=== PATIENT | male | born 1965 | race Caucasian/White ===

== ENCOUNTER 2016-06-29 19:14 | Inpatient (IN) | payer OTHER ==
[~2016-06-29] VITALS: Ht 177.8 cm; Wt 97.1 kg
[~2016-06-29 19:14] MED LIST: ASPIRIN81 M4 PO; LOSARTAN-HCTZ1 EACH PO
--- NOTE | 2016-06-29 19:32 | NUR ---
TRIAGE: PT BROUGHT INTO TRIAGE IN W/C C/C NEAR SYNCOPAL EPISODE. PT HAD COME HOME FROM [employer]ALL [employer]AME WHEN SYMPTOMS CAME ON, SUDDEN IN ONSET. REPORTS ALSO NUMBING AND THROBBING PAIN TO ARMS AND LEGS, FEELING DIZZY AND SWEATY. PT NOTED TO BE PALE AND DIAPHORETIC AT TRIAGE, HR 120'S. DENIES ANY CHEST PAIN. REPORTS HX OF EPISODE OF RAPID AFIB IN MARCH, STATES HE WENT IN AND OUT OF IT AND DOES NOT REQUIRE ANY MEDICATION FOR IT AT THIS TIME. SENT TO [facility] FOR EKG AND BLOOD WORK.
--- NOTE | 2016-06-29 19:33 | NUR ---
Informed waiting has been performed.
--- NOTE | 2016-06-29 19:36 | NUR ---
IV ESTABLISHED IN [facility]. BLOOD SAMPLES DRAWN
--- NOTE | 2016-06-29 19:41 | ED CARDIAC/CP/PALPITATIONS ---
History of Present Illness General Chief Complaint: Syncope and Near-Syncope Stated Complaint: NEAR SYNCOPAL EPISODES TODAY Source: patient Exam Limitations: no limitations Vital Signs & Intake/Output Vital Signs & Intake/Output Vital Signs Date Time Temp Pulse Resp B/P Pulse O2 O2 Flow FiO2 Ox Delivery Rate 06/29 2199 100 Nasal 2.0L Cannula 06/29 2157 62 12 119/77 99 Nasal 2.0L Cannula 06/29 2126 96.3 86 16 120/73 100 Nasal 2.0L Cannula 06/29 2099 98/60 06/29 2052 73 12 98/60 100 Nasal 2.0L Cannula 06/298 90 100/60 06/29 2013 96.0 127 24 131/68 06/29 2000 86/60 06/29 1950 Room Air 06/29 1920 96.0 127 24 131/68 98 Room Air Allergies Coded Allergies: No Known Allergies (06/29/16) Triage Note: TRIAGE: PT BROUGHT INTO TRIAGE IN W/C C/C NEAR SYNCOPAL EPISODE. PT HAD COME HOME FROM [employer] WHEN SYMPTOMS CAME ON, SUDDEN IN ONSET. REPORTS ALSO NUMBING AND THROBBING PAIN TO ARMS AND LEGS, FEELING DIZZY AND SWEATY. PT NOTED TO BE PALE AND DIAPHORETIC AT TRIAGE, HR 120'S. DENIES ANY CHEST PAIN. REPORTS HX OF EPISODE OF RAPID AFIB IN MARCH, STATES HE WENT IN AND OUT OF IT AND DOES NOT REQUIRE ANY MEDICATION FOR IT AT THIS TIME. SENT TO [facility] FOR EKG AND BLOOD WORK. Triage Nurses Notes Reviewed? yes Onset: Abrupt Duration: constant Timing: single episode today Quality/Severity: severe, pressure Location: substernal Radiation: neck, shoulders Activities at Onset: activity Aspirin Today: 81 mg x 1 HPI: Patient is a 50-year-old male with a past medical history of hypertension and concerns of new onset of atrial fibrillation with rapid ventricular rate noted after patient was admitted in March 2016 to [facility]. Patient initially received aspirin due to low chads score and was admitted to Dr. Webber's service. Patient received at the time of admission echocardiogram showing ejection fraction of 55% and patient was safely discharged any followed up with front desk receptionist Dr. Warner in [place]. Patient and state that since discharge they followed up and received unremarkable stress test, echocardiogram and Holter monitoring. Patient states that approximately 3 weeks ago while playing basketball he had acute onset of dizziness presyncope chest pressure and body paresthesia which resolved and patient did not seek medical attention at that time. Patient states that today while playing basketball about approximate 40 minutes into playing he had acute onset of chest pressure dizziness SHORTNESS OF BREATH sensation diaphoresis and body paresthesia. Symptoms still persisted and were worse due to the severity and the duration of his symptoms he presented to the emergency room. Patient is compliant with his losartan and 81 mg of aspirin. No other medications were given prior to arrival. Patient does state that he does drink alcohol on occasion and has cut back due to his last admission. Denies any illicit drug use denies any smoking use. (TERRENCE FUENTES) Reconcile Medications Aspirin (Ecotrin*) 81 MG TABLET.DR 1 TAB PO DAILY HEART/BLOOD (Reported) Losartan/Hydrochlorothiazide (Losartan-Hctz 100-12.5 MG Tab) 1 EACH TABLET 1 TAB PO DAILY HTN (Reported) (JANELLE HUERTAS DO) Past History Travel History Traveled to [place] past 21 day No Medical History Any Pertinent Medical History? see below for history Neurological: NONE EENT: NONE Cardiovascular: AFIB, hypertension Respiratory: asthma Gastrointestinal: NONE Hepatic: NONE Renal: NONE Musculoskeletal: NONE Psychiatric: NONE Endocrine: NONE Blood Disorders: NONE Cancer(s): NONE GUEST LAUNDRY ATTENDANT/Reproductive: NONE Other Medical Hx: hemorrhoidal banding History of MRSA: No History of VRE: No History of CDIFF: No Surgical History Surgical History: hernia repair-inguinal (left), N (left rotator cuff repair) Psychosocial History Who do you live with Spouse Services at Home None What is your primary language Arabic Tobacco Use: Never used ETOH Use: occasional use Illicit Drug Use: denies illicit drug use Family History Hx Contributory? No (TERRENCE FUENTES) Review of Systems Review of Systems Constitutional: Reports: see HPI, malaise, weakness. EENTM: Reports: no symptoms. Respiratory: Reports: see HPI, short of breath. Cardiovascular: Reports: see HPI. GI: Reports: see HPI, nausea. Genitourinary: Reports: no symptoms. Musculoskeletal: Reports: no symptoms. Skin: Reports: no symptoms. Neurological/Psychological: Reports: see HPI, paresthesia. Hematologic/Endocrine: Reports: no symptoms. Immunologic/Allergic: Reports: no symptoms. All Other Systems: Reviewed and Negative (TERRENCE FUENTES) Physical Exam Physical Exam General Appearance: mild distress, PALE COMPLEXION Cardiovascular: tachycardia Comments: HEENT: Normal EENT exam, extraocular motion intact, no nystagmus. Pupils equally round and reactive to light and accommodation. Nose is atraumatic. External auditory canal and Tympanic membranes clear. Pharynx normal. No swelling or edema. Neck: Supple, no lymphadenopathy, normal range of motion without pain or tenderness Back: Nontender, no CVA tenderness. Respiratory: Chest nontender. No respiratory distress.breath sounds clear to auscultation bilaterally Abdomen: Soft, nontender nondistended, no appreciable organomegaly. Normal bowel sounds. No ascites Extremity: No edema, no calf tenderness to palpation, normal and equal pulses. Neuro: Alert oriented Skin: No appreciable rash on exposed skin, skin is warm and dry. Psych: Mood and affect is normal, memory and judgment is normal. Core Measures ACS in differential dx? Yes ASA ordered for poss ACS? Yes-ordered Severe Sepsis Present: No Septic Shock Present: No (FAVIAN OWEN,TERRENCE) Physical Exam Rectal: heme negative stool (JANELEL HUERTAS DO) Progress Differential Diagnosis: AMI, aortic dissection, atrial fibrillation, cholecystitis, CHF/pulm edema, costochondritis, hyperkalemia, hypovolemia, hyperthyroid, hyperventilation, intracranial hemorrhage, musculoskeletal pain, myocarditis, pancreatitis, pericarditis, pneumonia, pneumothorax, PSVT, pulmonary embolism, PUD/GERD, PVCs/PACs, respiratory failure, rib fracture, sepsis, unstable angina, V-fib/V-Tach, WPW syndrome Plan of Care: Orders Procedure Date/time Status Admit to inpatient 06/29 2207 Active URINE DRUGS OF ABUSE 06/29 2156 Active Patient Data 06/29 215 Active EKG 06/29 2131 Active Add-on Test (ER Only) 06/29 2000 Active PARTIAL THROMBOPLASTIN TIME 06/29 1955 Complete PROTHROMBIN TIME 06/29 1955 Complete Telemetry/Res Habilitation Assistant 06/29 1954 Active THYROID STIMULATING HORMONE 06/29 1954 Complete TROPONIN LEVEL 06/29 1954 Complete MAGNESIUM 06/29 1954 Complete FREE T4 06/29 1954 Complete COMPREHENSIVE METABOLIC PANEL 06/29 1954 Complete CBC WITHOUT DIFFERENTIAL 06/29 1954 Complete EKG 06/29 1950 Active D-DIMER 06/29 1936 Complete EKG 06/29 1924 Active Current Medications Sig/Jeffry Start time Last Medication Dose Stop Time Status Admin Heparin Sodium 25,000 UNIT Q24H 06/29 2199 UNVr (Porcine) (Heparin) Sodium Chloride 500 ML Adenosine 0 .STK-MED ONE 06/29 1955 CAN (Adenocard) Laboratory Tests 06/29/162157: Urine Opiates Screen Pending, Methadone Screen Pending, Barbiturate Screen Pending, Ur Phencyclidine Scrn Pending, Amphetamines Screen Pending, U Benzodiazepines Scrn Pending, Urine Cocaine Screen Pending, Urine Cannabis Screen Pending 06/29/161999: D-Dimer Cancelled 06/29/161936: Anion Gap 20 H, Estimated GFR 59 L, BUN/Creatinine Ratio 14.6, Glucose 164 H, Calcium 9.3, Magnesium 2.0, Total Bilirubin 1.1, AST 33, ALT 35, Alkaline Phosphatase 87, Troponin I < 0.01, Total Protein 8.0, Albumin 4.7, Globulin 3.3, Albumin/Globulin Ratio 1.4, TSH 2.900, Free T4 1.50, PT 11.1, INR 1.06, APTT 24 L, D-Dimer < 200, CBC w Diff NO MAN DIFF REQ, RBC 5.02, MCV 90.0, MCH 30.8, RDW 12.8, MPV 7.5, Gran % 64.5, Lymphocytes % 22.9, Monocytes % 10.9 H, Eosinophils % 1.1, Basophils % 0.6, Absolute Granulocytes 5.8, Absolute Lymphocytes 2.0, Absolute Monocytes 1.0 H, Absolute Eosinophils 0.1, Absolute Basophils 0.1, PUBS MCHC 34.2 Patient on initial presentation had significant concerns of acute coronary syndrome in which the telemetry monitored noted patient to be in SVT approximately 200 bpm to 180 bpm intermittently which patient then would return to sinus rhythm however there was brief episodes of ventricular tachycardia. Cardiac pads were immediately placed on patient. There is also been intermittent episodes during normal sinus rhythm of PVC. Patient initially was given aspirin regiment and magnesium IV. Dr. HUERTAS also evaluated patient and discussed critical results with Dr. Webber who is aware of admission is coming in to evaluate patient. He also advised patient to be given IV Lopressor which was administered. Patient's initial blood pressure was 130/70 however the blood pressure then became 90/60 which IV fluids were administered bolus. Patient's blood pressure did respond however patient was still in intermittent SVT in which Dr. Webber then advised patient to be given IV amiodarone bolus and IV amiodarone drip which was administered. Patient was accepted under Dr. Webbre service to the ICU. Dr. HUERTAS agrees with disposition plan AND Also evaluated patient. Patient upon admission was stabilized patient was normotensive and Dr. Webber currently is evaluating patient (TERRENCE FUENTES) Diagnostic Imaging: Viewed by Me: Radiology Read. CXR Impression: no acute abnormality, no infiltrates Initial ED EKG: SINUS TACHYCARDIA 104 BPM Repeat EKG: changed (svt 179 BPM) Comments: PATIENT: JUHI CARPIO JR PRESENT AGE: 50 PATIENT ACCOUNT NO: [id number] : 66 LOCATION: [facility] ORDERING PHYSICIAN: TERRENCE OWEN SERVICE DATE: 06/29/16 EXAM TYPE: RAD - XRY-PORTABLE CHEST XRAY EXAMINATION: XR PORTABLE CHEST CLINICAL INFORMATION: SVT COMPARISON: Chest x-ray 03/30/2016 TECHNIQUE: Portable view of the chest was obtained. FINDINGS: No significant abnormality is noted involving the heart, lungs, mediastinum, bony thorax or soft tissues. IMPRESSION: Unremarkable examination. (TERRENCE FUENTES) Departure Departure Disposition: STILL A PATIENT Condition: Critical Clinical Impression Primary Impression: SVT (supraventricular tachycardia) Secondary Impressions: Chest pain Referrals: EMMA DODSON MD (PCP/Family) Departure Forms: Customer Survey General Discharge Information Admission Note Spoke With: JUN TORRES PhD,SHADIA Alex Documentation of Exam: Documentation of any treatments & extenuating circumstances including Concerns Regarding Discharge (functional status, medication knowledge or non-compliance, living conditions, etc.) that warrant an admission rather than observation: [ Patient will be accepted under Dr. Webber's service to the ICU for concerns of recurrent SVT, patient requires cardiology consultation, telemetry monitoring, repeat labs, IV antiarrhythmic-amiodarone, outpatient treatment at this time due to critical status of recurrent SVT and concerns of intermittent V. tach would be medically harmful.] (TERRENCE FUENTES) Admission Note Documentation of Exam: Documentation of any treatments & extenuating circumstances including Concerns Regarding Discharge (functional status, medication knowledge or non-compliance, living conditions, etc.) that warrant an admission rather than observation: 06/29/16 10 pm I have seen and evaluated the patient and assumed care of the patient. He is a 50-year-old man who presents to the emergency department after playing basketball with an episode of chest pressure and intermittent runs of supraventricular tachycardia. He also had ventricular ectopy and short runs of V. tach. The patient was placed on a monitor and oxygen. Labs were sent. Chest x-ray was unchanged. He received IV magnesium, IV Lopressor, and IV amiodarone. Stat cardiology consultation was obtained; the patient is being admitted and has been seen by Dr. Webber in the ED, admission to the intensive care unit. PA/AUTOMOBILE ACCESSORIES SALESPERSON Co-Sign Statement Statement: ED Attending supervision documentation- [X] I saw and evaluated the patient. I have also reviewed all the pertinent lab results and diagnostic results. I agree with the findings and the plan of care as documented in the PA's/AUTOMOBILE ACCESSORIES SALESPERSON's documentation. [] I have reviewed the ED Record and agree with the PA's/AUTOMOBILE ACCESSORIES SALESPERSON's documentation. [] Additions or exceptions (if any) to the PAs/AUTOMOBILE ACCESSORIES SALESPERSON's note and plan are summarized below: [] (ALEKSANDAR HUNTER,JANELLE Lau) Critical Care Note Critical Care Note Critical Care Time: 75-104 min (FAVIAN OWEN,TERRENCE)
--- NOTE | 2016-06-29 19:50 | NUR ---
PT MOVED TO RM 11 VIA STRETCHER. PT LETHARGIC, PALE. PLACED ON STEEL FABRICATOR. PT HAS SINUS BEATS BUT THEN HAS RAPID HR IN 200'S WITH ASSOCIATED DIZZINESS AND PRESYNCOPAL FEELING. PVCS ALSO NOTED. DR. HUERTAS AND LEXIE BALLESTEROS CALLED TO BEDSIDE
--- NOTE | 2016-06-29 20:20 | NUR ---
PT CONTINUING TO HAVE INTERMITTENT BUT FREQUENT RUNS OS ?SVT AND VTACH. PT THEN HAS PAUSES AND RESUMES WITH SINUS BEATS. DR. HUERTAS REMAINS AT BEDSIDE
[2016-06-29 20:29] LABS: ABSOLUTE BASOPHIL COUNT 0.1 /CUMM (0.0-0.2); ABSOLUTE EOSINOPHIL COUNT 0.1 /CUMM (0.0-0.7); ABSOLUTE GRANULOCYTE CT 5.8 /CUMM (1.4-6.5); BASOPHIL % 0.6 % (0.0-2.0); EOSINOPHIL % 1.1 % (0-5); GRANULOCYTE % 64.5 % (42.2-75.2); HEMATOCRIT 45.2 % (42-52); MEAN CORPUSCULAR HGB 30.8 PG (27.0-31.0); MEAN CORPUSCULAR HGB CONC 34.2 G/DL (33.0-37.0); MEAN PLATELET VOLUME 7.5 FL (7.4-10.4); PLATELET COUNT 217 /CUMM (130-400); RBC DISTRIBUTION WIDTH 12.8 % (11.5-14.5); RED BLOOD CELL CT 5.02 /CUMM (4.70-6.10); WHITE BLOOD CELL COUNT 8.9 /CUMM (4.8-10.8)
[2016-06-29 20:44] LABS: PT 11.1 SEC (9.4-12.5); PTT 24 SEC (25-37)
--- NOTE | 2016-06-29 20:54 | NUR ---
PT RESTING COMFORTABLY AT THIS TIME. STATES PAIN AND LIGHTHEADNESS HAS IMPROVED "I CAN ACTUALLY TALK NOW." FAMILY AT BEDSIDE FOR SUPPORT. AMIODARONE BOLUS INFUSING
--- NOTE | 2016-06-29 21:00 | NUR ---
AMIODARONE DRIP RUNNING AT 33.3ML/HR 1MG/MIN PER PROTOCOL AND DR. BRAAHONA'S VERBAL ORDER
[2016-06-29] MEDS ORDERED: ASPIRIN EC81 M1 PO (21:07)
--- NOTE | 2016-06-29 21:11 | NUR ---
DR. BARAHONA AT BEDSIDE
--- NOTE | 2016-06-29 21:13 | RADIOLOGY REPORT ---
EXAMINATION: XR PORTABLE CHEST CLINICAL INFORMATION: SVT COMPARISON: Chest x-ray 03/30/2016 TECHNIQUE: Portable view of the chest was obtained. FINDINGS: No significant abnormality is noted involving the heart, lungs, mediastinum, bony thorax or soft tissues. IMPRESSION: Unremarkable examination.
--- NOTE | 2016-06-29 21:50 | NUR ---
PT MORE ALERT AND ORIENTED. ABLE TO HOLD FULL CONVERSATION. STATES HE HAS MORE ENERGY. HR 70'S-100'S
--- NOTE | 2016-06-29 21:52 | Cons- Cardiology ---
General Information and HPI Consulting Request Date of Consult: 06/29/16 Requested By: Dr. Mattson/ ER History of Present Illness: Mr. Seymour is a 50 year old male with history of hypertension who was seen in [facility] in March with complaints of palpitations and associated lightheadedness. He was found to be in atrial fibrillation at that time. The patient was initially treated with Sotolol at that time but this medication needed to be stopped due to bradycardia. He did not follow up through our office but reportedly had a stress test that was normal. Over the past couple months this patient has had repeated episodes of chest discomfort, lightheadedness and palpitations. Today, after playing basketball he had a particularly prominent episode prompting his current ER evaluation. The patient reports that after playing basketball he became lightheaded. He is not sure if he actually passed out but for some period of time was not responding verbally to the people around him. He also reports a mild chest pressure that radiated to the back of his neck. It is associated with a numbness and tingling sensation in his hands bilaterally. There was associated diaphoresis but no nausea or vomiting. The patient at baseline in active without shortness of breath. In the ER this patient was noted to have intermittent bouts of SVT and short runs of NSVT. This patient has noted intermittent palpitations for at least a couple years and at least one time a he was profoundly lightheaded. He had seen a cycle director at that time and did have a stress test. He does tend to snore at night somewhat suggestive of sleep apnea. His recent echocardiogram showed a normal EF of 55% with mild LVH and mild left atrial enlargment with trace MR. Allergies/Medications Allergies: Coded Allergies: No Known Allergies (06/29/16) Home Med List: Aspirin (Ecotrin*) 81 MG TABLET.DR 1 TAB PO DAILY HEART/BLOOD (Reported) Losartan/Hydrochlorothiazide (Losartan-Hctz 100-12.5 MG Tab) 1 EACH TABLET 1 TAB PO DAILY HTN (Reported) Review of Systems Review of Systems: A twelve point review of systems is unremarkable. 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 Other Medical Hx: hemorrhoidal banding Surgical History Surgical History: hernia repair-inguinal (left), left rotator cuff repair Psychosocial History Services at Home: None ETOH Use: occasional use Illicit Drug Use: denies illicit drug use Exam & Diagnostic Data Vital Signs and I&O Vital Signs Date Time Temp Pulse Resp B/P Pulse O2 O2 Flow FiO2 Ox Delivery Rate 06/29 2126 96.3 86 16 120/73 100 Nasal 2.0L Cannula 06/29 2099 98/60 06/29 2052 73 12 98/60 100 Nasal 2.0L Cannula 06/29 2047 90 100/60 06/29 2013 96.0 127 24 131/68 06/29 1999 86/60 06/29 192 96.0 127 24 131/68 98 Room Air Physical Exam: General: WD/ WN male in NAD; alert and oriented x 3 HEENT: NC/ AT, PERRL, EOMI, clear oropharynx Neck: no JVD, no carotid bruit Heart: irregular without murmur Lungs: clear bilaterally Abdomen: soft, NT, +ve bowel sounds Extremities: no edema Assessment/Plan Assessment/Plan * This patient has a multifocal atrial tachycardia verses sinus rhythm with bouts of atrial fibrillation. He also has frequent episodes of NSVT. I have a low suspicion of an acute coronary syndrome but I suspect this patient does have coronary artery diseae. In the setting of his tachycardia his CAD has resulted in demand ischemia. We will follow three sets of cardiac enzymes. * Continue Lisinopril as previously prescribed. Begin IV heparin and continue aspirin. Begin an amiodarone drip following an Amiodarone bolus to suppress his VT and to control his heart rate. We will recheck another echocardiogram to ensure that this patient has not developed a tachycardia induced cardiomyopathy. * In regard to this patient's near syncope, it should be recalled that he was previously noted to be bradycardic necessitating his discomtinuation of beta blockers. His lightheadedness may therefore be related to either episodes of VT verses bradycardia. Thyroid function tests are WNL but we will check a Lyme titer. The patient will be monitored in the ICU on telemetry for tonight. * Replete potassium to 4-4.5. * If the patient rules in we will have a low threshold for cardiac catheterization. Consult Acknowledgment - Thank you for your consult request.
--- NOTE | 2016-06-29 22:00 | NUR ---
URINE SENT TO LAB
--- NOTE | 2016-06-29 22:17 | NUR ---
AWAITING GUIAC TEST TO INITATE HEPARIN DRIP
--- NOTE | 2016-06-29 22:22 | NUR ---
PT RESTING COMFORTABLY. STATES HE FEELS BETTER. HR SINUS 50'S-70'S
--- NOTE | 2016-06-29 22:43 | NUR ---
ICU RESIDENT AT BEDSIDE
--- NOTE | 2016-06-29 23:44 | NUR ---
SPOKE W/ PATIENT AND COMPLETED NURSING ASSESSMENT. PATIENT VSS. HR:61 ON MONITOR, NSR. PATIENT DENIES COMPLAINTS AT THIS TIME. ICU FLOWSHEET INITIATED (IN DANIEL OF IPOC) FOR PATIENT AND IS UTD AT THIS TIME. PATIENT USING BEDSIDE URINAL W/O DIFFICULTY.
--- NOTE | 2016-06-30 00:10 | History & Physical ---
See Addendum General Information and HPI Source of Information: patient Exam Limitations: no limitations History of Present Illness: He is 50-year-old man with past medical history of hypertension and paroxysmal A. fib not on any anticoagulation presented to ER with complaint of near syncope while he was playing basketball game. According to patient he was lightheaded, felt chest pressure, tingling sensation in his hands and feet. He was also pale and diaphoretic. When he came to ER his temperature was 96.0, pulse 127, respiratory rate 24, blood pressure 131/68 and oxygen saturation 98% on room air. EKG was done that showed supraventricular tachycardia. He was attached to monitor. He was going in and out of VT and also had a brief episode of A. fib. In ER he was given aspirin, Lopressor 5 mg IV 1, IV fluids. Labs show hypokalemia. Trops 1 negative. He was started on amiodarone drip and heparin drip after giving boluses. Potassium and magnesium were repleted. Currently he is denying any chest pain, palpitations, dizziness or lightheadedness, diaphoresis, tingling of extremities, nausea, vomiting, abdominal pain. No change in urinary or bowel habits. He reports having similar episode but less severe 3 weeks ago while playing basketball game. He also had nuclear stress test as an outpatient that was normal. He also reports having a heart monitor for 1 day that did not show any abnormal rhythm. He is nonsmoker, drinks alcohol occasionally. Denies use of illicit drugs. Family history of heart attack and stroke in his grandfather. Hypertension in father. No family history of sudden cardiac . Allergies/Medications Allergies: Coded Allergies: No Known Allergies (06/29/16) Home Med list Aspirin (Ecotrin*) 81 MG TABLET.DR 1 TAB PO DAILY HEART/BLOOD (Reported) Losartan/Hydrochlorothiazide (Losartan-Hctz 100-12.5 MG Tab) 1 EACH TABLET 1 TAB PO DAILY HTN (Reported) Compliance With Home Meds: GOOD Past History Travel History Traveled to [place] past 21 day No Medical History Neurological: NONE EENT: NONE Cardiovascular: AFIB, hypertension Respiratory: asthma Gastrointestinal: NONE Hepatic: NONE Renal: NONE Musculoskeletal: NONE Psychiatric: NONE Endocrine: NONE Blood Disorders: NONE Cancer(s): NONE [employer]/Reproductive: NONE Other Medical Hx: hemorrhoidal banding History of MRSA: No History of VRE: No History of CDIFF: No Surgical History Surgical History: hernia repair-inguinal (left), left rotator cuff repair Past Family/Social History Family History Relations & Conditions if any grandfather ([place], stroke). FATHER (HTN). Psychosocial History Where do you live? Home Who Do You Live With? spouse Services at Home: None Smoking Status: Never Smoked ETOH Use: occasional use Illicit Drug Use: denies illicit drug use Functional Ability ADLs Independent: dressing, eating, toileting, bathing. Ambulation: independent IADLs Independent: shopping, housework, finances, food prep, telephone, transportation , medication admin. Review of Systems Review of Systems Constitutional: Reports: see HPI. Exam & Diagnostic Data Last 24 Hrs of Vital Signs/I&O Vital Signs Date Time Temp Pulse Resp B/P Pulse O2 O2 Flow FiO2 Ox Delivery Rate 06/30 0028 97.0 56 18 117/71 97 Nasal 2.0L Cannula 06/298 96.8 61 18 109/70 98 Nasal 2.0L Cannula 06/298 59 12 121/76 100 Nasal 2.0L Cannula 06/290 100 Nasal 2.0L Cannula 06/29 2158 62 12 119/77 99 Nasal 2.0L Cannula 06/29 2126 96.3 86 16 120/73 100 Nasal 2.0L Cannula 06/29 2100 98/60 06/29 2053 73 12 98/60 100 Nasal 2.0L Cannula 06/29 2048 90 100/60 06/29 2013 96.0 127 24 131/68 04 2000 86/60 04 1950 Room Air 06/29 1921 96.0 127 24 131/68 98 Room Air Intake & Output 06/30 0800 06/30 0000 06/29 1600 Intake Total Output Total 300 Balance -300 Output, Urine 300 Patient 205 lb Weight Physical Exam General Appearance Alert, Oriented X3, Cooperative, No Acute Distress Neck Supple, No JVD Cardiovascular No Murmurs, tachycardia Lungs Clear to Auscultation Abdomen Normal Bowel Sounds, Soft, No Tenderness Neurological Normal Speech, Strength at 5/5 X4 Ext, Sensation Intact, Cranial Nerves 3-12 NL Extremities No Edema Last 24 Hrs of Labs/Armando: Laboratory Tests 06/29/162157: Urine Opiates Screen < 100.00, Methadone Screen < 40, Barbiturate Screen < 60, Ur Phencyclidine Scrn < 6.00, Amphetamines Screen < 100, U Benzodiazepines Scrn < 85, Urine Cocaine Screen < 50, Urine Cannabis Screen < 5.00 06/29/161999: D-Dimer Cancelled 06/29/16 1937: Anion Gap 20 H, Estimated GFR 59 L, BUN/Creatinine Ratio 14.6, Glucose 164 H, Calcium 9.3, Magnesium 2.0, Total Bilirubin 1.1, AST 33, ALT 35, Alkaline Phosphatase 87, Troponin I < 0.01, Total Protein 8.0, Albumin 4.7, Globulin 3.3, Albumin/Globulin Ratio 1.4, TSH 2.900, Free T4 1.50, PT 11.1, INR 1.06, APTT 24 L, D-Dimer < 200, CBC w Diff NO MAN DIFF REQ, RBC 5.02, MCV 90.0, MCH 30.8, RDW 12.8, MPV 7.5, Gran % 64.5, Lymphocytes % 22.9, Monocytes % 10.9 H, Eosinophils % 1.1, Basophils % 0.6, Absolute Granulocytes 5.8, Absolute Lymphocytes 2.0, Absolute Monocytes 1.0 H, Absolute Eosinophils 0.1, Absolute Basophils 0.1, PUBS MCHC 34.2 Assessment/Plan Assessment: His 50-year-old man with past medical history of hypertension and paroxysmal A. fib going to be admitted in ICU for: 1. Near syncope. Found to have intermittent SVTs. to rule out ACS 2. Electrolyte abnormalities 3. Elevated creatinine 4. History of hypertension Monitor vitals closely. Keep oxygen saturation more than 92%. We'll continue amiodarone drip and heparin drip. First troponins are negative. Will get 2 more sets of troponins and do serial EKGs to rule out ACS. Patient is nothing by mouth. Will continue aspirin. Echocardiogram. Thyroid functions are normal. Low threshold for cardiac cath if troponins are positive. Gentle hydration. Repeat kidney functions in a.m. Repeat electrolytes and replete accordingly. We'll keep potassium more than 4 and magnesium more than 2. We will hold antihypertensive for now as patient was hypotensive and because of elevated creatinine. Full code. will Follow further cardiac recommendations. As Ranked By This Provider Problem List: 1. SVT (supraventricular tachycardia) 2. Chest pain Core Measures/Miscellaneous Acute Coronary Syndrome ACS Diagnosis: No Cerebrovascular Accident CVA/TIA Diagnosis: No Congestive Heart Failure CHF Diagnosis: No Venous Thromboembolism VTE Risk Factors: Acute medical illness, Age > 40 VTE Prophylaxis Ordered Inpt: Pharm- Heparin No Mech VTE prophylaxis d/t: No contraindications No VTE Pharm Prophylaxis d/t: No contraindications VTE Diagnosis: No VTE Type: NONE VTE Confirmed by (Test): NONE Severe Sepsis Severe Sepsis Present: No Septic Shock Septic Shock Present: No Miscellaneous Documentation Attending Case Discussed With: JUN TORRES PhD,SHADIA Alex Primary Care Physician: EMMA DODSON MD Patient sees these Specialists cadio Level of Patient Care: Critical Care (CRI) Consults Needed: Consulting Specialty: Cardiology
--- NOTE | 2016-06-30 00:33 | NUR ---
D5-1/2NS INITIATED AT 75ML/HR PER EMAR IN IV SITE W/ HEPARIN IN 1/2NS (CONFIRMED COMPATABILITY W/ PHARMACIST). TOLERATING WELL. PATIENT USING URINAL AGAIN AT THIS TIME.
--- NOTE | 2016-06-30 00:53 | NUR ---
0100 BLOODWORK OBTAINED AND SENT TO LAB BY [facility]. REPEAT EKG IN PROGRESS. PATIENT AWARE OF NEXT EKG/ BLOODWORK AT 0600.
--- NOTE | 2016-06-30 01:00 | NUR ---
PATIENT SPOUSE LEAVING AT THIS TIME. PHONE NUMBER TO CALL FOR ANY UPDATES/ CHANGES (JUAN CARLOS), OKAY PER PATIENT.
--- NOTE | 2016-06-30 02:00 | NUR ---
PATIENT REMAINS AWAKE AT THIS TIME, DENIES COMPLAINTS. ICU FLOWSHEET CONTINUED AND UTD.
--- NOTE | 2016-06-30 02:49 | NUR ---
PATIENT SLEEPING W/ REGULAR RESPIRATIONS AND LIGHTS DIMMED. NO ACUTE DISTRESS.
--- NOTE | 2016-06-30 03:00 | NUR ---
AMIODORONE DRIP DECREASED TO 17ML/HR PER EMAR/ MEDICATION ADMINISTRATION PER POLICY AND CONSULT W/ PHARMACIST. WILL RUN AT 17ML/HR X 18 HOURS PER POLICY.
--- NOTE | 2016-06-30 05:01 | NUR ---
PATIENT CONTINUES TO SLEEP AT THIS TIME, REGULAR RESPIRATIONS NOTED. HR:54, NSR ON MONITOR. ICU FLOWSHEET CONTINUED AND UTD.
--- NOTE | 2016-06-30 05:25 | NUR ---
PATIENT CONTINUES TO SLEEP AT THIS TIME W/ REGULAR RESPIRATIONS NOTED. LIGHTS DIMMED.
[2016-06-30 06:06] LABS: ABSOLUTE BASOPHIL COUNT 0 /CUMM (0.0-0.2); ABSOLUTE EOSINOPHIL COUNT 0.1 /CUMM (0.0-0.7); ABSOLUTE GRANULOCYTE CT 3.3 /CUMM (1.4-6.5); ABSOLUTE LYMPH COUNT 1.3 /CUMM (1.2-3.4); ABSOLUTE MONOCYTE COUNT 0.7 /CUMM (0.10-0.60); BASOPHIL % 0.4 % (0.0-2.0); GRANULOCYTE % 61.4 % (42.2-75.2); HEMATOCRIT 41.7 % (42-52); MEAN CORPUSCULAR HGB 31.4 PG (27.0-31.0); MEAN CORPUSCULAR HGB CONC 34.5 G/DL (33.0-37.0); MEAN CORPUSCULAR VOLUME 90.8 FL (80.0-94.0); MEAN PLATELET VOLUME 6.9 FL (7.4-10.4); PLATELET COUNT 171 /CUMM (130-400); RBC DISTRIBUTION WIDTH 13.1 % (11.5-14.5); RED BLOOD CELL CT 4.59 /CUMM (4.70-6.10); WHITE BLOOD CELL COUNT 5.4 /CUMM (4.8-10.8)
[2016-06-30 06:36] LABS: PTT 119 SEC (25-37)
--- NOTE | 2016-06-30 06:40 | NUR ---
CRITICAL TEST RESULTS [id number] JUHI CARPIO, 50 M TESTS AND RESULTS: PTT = 119 Results received and read back by: MEENU PECK Results received date and time: 06/30/16 0641 The following provider was notified of the results, and read the results back: DR RICHARDSON Notified date and time: 06/30/16 at 0635
--- NOTE | 2016-06-30 06:50 | NUR ---
PATIENT CONTINUES TO SLEEP AT THIS TIME. HR:44-50 NSR ON MONITOR. ICU FLOWSHEET CONTINUED, UTD AND IN PATIENT CHART.
--- NOTE | 2016-06-30 07:05 | NUR ---
HEPARIN DRIP HELD X 60 MINUTES (TO BE REINITIATED AT 0805) PER PTT 119 AND HEPARIN POLICY.
--- NOTE | 2016-06-30 08:10 | NUR ---
HEPARIN GTT REINITIATED AT 12.2 UNITS/KG/HR. PT CURRENTLY HAS NO COMPLAINTS
--- NOTE | 2016-06-30 09:23 | PN- Cardiology ---
Subjective Subjective: * Patient is lying supine and feels much improved without chest pain, shortness of breath, lightheadedness or palpitations. * Normal troponins x 3 sets * potassium is now 4.0 * sinus rhythm * tox screen negative Objective Vital Signs and I&Os Vital Signs Date Time Temp Pulse Resp B/P Pulse O2 O2 Flow FiO2 Ox Delivery Rate 06/30 0643 96.2 50 18 115/70 98 Nasal 2.0L Cannula 06/30 0543 96.8 55 18 107/67 98 Nasal 2.0L Cannula 06/30 0443 97.0 40 18 105/70 98 Nasal 2.0L Cannula 06/30 0343 97.0 45 20 102/72 97 Nasal 2.0L Cannula 06/30 0243 97.0 46 18 100/65 98 Nasal 2.0L Cannula 06/30 0128 96.9 60 18 114/65 99 Nasal 2.0L Cannula 06/30 0028 97.0 56 18 117/71 97 Nasal 2.0L Cannula 06/29 2328 96.8 61 18 109/70 98 Nasal 2.0L Cannula 06/29 2228 59 12 121/76 100 Nasal 2.0L Cannula 06/29 2200 100 Nasal 2.0L Cannula 06/29 2158 62 12 119/77 99 Nasal 2.0L Cannula 06/29 2127 96.3 86 16 120/73 100 Nasal 2.0L Cannula 06/29 2100 98/60 06/29 2053 73 12 98/60 100 Nasal 2.0L Cannula 06/29 2048 90 100/60 06/29 2013 96.0 127 24 131/68 04 2000 86/60 04 1950 Room Air 06/29 1921 96.0 127 24 131/68 98 Room Air Intake & Output 06/30 1600 06/30 0800 06/30 0000 06/29 1600 06/29 0800 06/29 0000 Intake Total Output Total 600 300 Balance -600 -300 Output, Urine 600 300 Patient 205 lb Weight Physical Exam: General: WD/ WN male in NAD; alert and oriented x 3 Neck: no JVD, no carotid bruit Heart: RRR w/o murmur Lungs: clear bilaterally Extremities: no edema Assessment/Plan Assessment/Plan * This patient is much improved. He is now in a stable sinus rhythm on Amiodarone. Although his ventricular ectopy has resolved, long term care administrator use of this drug is undesireable due to its potential side effects. In the absence of myocardial ischemia, the necessity of this drug is also questionable. We will therefore stop Amiodarone at this point in time. Begin Sotolol at 40mg PO BID. This patient may go to telemetry for continued monitoring. * This patient is suspected to have coronary artery disease although he did rule out for an acute coronary syndrome. Stop IV heparin. This patient should be on Aspirin 162mg daily. * We will stop LisinoprilHCT which the patient was taking at home for his blood pressure. Continue telemetry? Yes
--- NOTE | 2016-06-30 09:35 | NUR ---
PT DOWNGRADE TO TELE. MOD/NURSE SUPER/REG AWARE.
--- NOTE | 2016-06-30 09:40 | NUR ---
DR BARAHONA AWARE OF PT'S HR.
--- NOTE | 2016-06-30 09:48 | NUR ---
PER DR BARAHONA, OK TO EAT
--- NOTE | 2016-06-30 09:57 | NUR ---
HEPARIN GTT AND AMIODARONE GTT D/C'D BY DR BARAHONA. SIG OTHER AT BEDSIDE. FOOD TRAY ORDERED
--- NOTE | 2016-06-30 11:38 | NUR ---
ASSUMED CARE OF PT. PT AWAKE, ALERT AND ORIENTED. NO CHEST PAIN, SHORTNESS OF BREATH OR DIZZINESS. PT ABLE TO VERBALIZE PLAN TO BE STARTED ON BETAPACE AND OBSERVE IN HOSPITAL. PT AWARE OTHER BLOOD PRESSURE MED IS BEING STOPPED NOW THAT HE IS ON BETAPACE. AT BEDSIDE. LUNCH ORDERED FOR PATIENT. PT GIVEN WATER AND RAÚL CRACKERS. REPEAT TROPONIN FROM 0700 AND LYME TITER DRAWN BY [facility]. IVF INFUSING. VITALS TAKEN
--- NOTE | 2016-06-30 11:43 | NUR ---
DR BRANHAM PAGED TO REPORT HEART RATE RANGING FROM 37-55
--- NOTE | 2016-06-30 11:54 | NUR ---
REPEAT PAGE TO DR WHEELER TO REPORT BRADYCARDIA.
--- NOTE | 2016-06-30 12:13 | NUR ---
DR KELSEY PAGED AND NOTIFIED THAT HEART RATE IS RANGING FROM 37-55 AFTER GETTING STARTED ON BETAPACE. NOTIFIED THAT PT WOULD LIKE TO SPEAK WITH MD CONCERNING OVERALL PLAN OF CARE AND POSSIBLE NEED FOR CARDIAC CATH
--- NOTE | 2016-06-30 12:49 | NUR ---
WENT TO CHECK ON PATIENT AND HE WAS FOUND STANDING UP ON SIDE OF BED. STATES HE WAS EXERCISING IN PLACE. DENIES DIZZINESS WHEN OOB. HEART RATE WENT UP TO 74 WITH THIS ACTIVITY AND WHEN HE LAID BACK DOWN IT DROPPED TO 50S
--- NOTE | 2016-06-30 14:20 | NUR ---
PT ALERT AND ORIENTED. IN NO DISTRESS. ATE LUNCH. VOIDED IN URINAL, RESTING QUIETLY AND VISITING WITH FAMILY
--- NOTE | 2016-06-30 14:46 | NUR ---
DIET ORDER CALLED TO DIETARY AT THIS TIME
--- NOTE | 2016-06-30 17:35 | NUR ---
PT WILL GO TO ROOM 181
--- NOTE | 2016-06-30 17:52 | NUR ---
PT AMBULATED BACK AND FORTH TO BATHROOM. BACK IN STRETCHER AT PRESENT
--- NOTE | 2016-06-30 18:01 | NUR ---
REPORT CALLED TO PRIMO JONES ON TELE UNIT
--- NOTE | 2016-06-30 18:22 | NUR ---
PT TRANSPORTED TO FLOOR
[2016-06-30 18:50] VITALS: BP 120/72
[2016-07-01 00:18] VITALS: BP 100/80
--- NOTE | 2016-07-01 02:45 | NUR ---
AT 0245, PT'S HEART RATE DROPPED TO 39. HAS BEEN 43-48 MOST OF SHIFT. PT SHOWS NO S/S AND STATES HE FEELS FINE. NOTIFIED. WILL CONTINUE TO MONITOR
--- NOTE | 2016-07-01 07:15 | PN- Housestaff ---
Subjective Follow-up For: Supraventricular tachycardia Syncope Hypokalemia Hypertension Complaints: pain scale (0-10) Tele-Events Since Last Visit: Sinus rhythm Sinus bradycardia Rate 40-50 Bradycardia down to 35 Subjective: Patient was seen and examined this morning. He is alert, awake and oriented to time place and person. No other acute events noticed overnight. He denied any chest pain or pressure, racing of heart, dizziness or lightheadedness. He denied any shortness of breath, cough, abdominal discomfort , change in bladder or bowel habits Vitals were stable. He is afebrile, heart rate 70, respiratory rate 18, blood pressure 100/80, saturating at 97% on room air. Last night his heart rate went down to 35. Sotalol dose was on hold last night Review of Systems Constitutional: Denies: see HPI. Objective Last 24 Hrs of Vital Signs/I&O Vital Signs Date Time Temp Pulse Resp B/P Pulse O2 O2 Flow FiO2 Ox Delivery Rate 07/01 0800 97.5 44 18 126/90 97 Room Air 07/01 0018 98.5 76 18 100/80 97 Room Air 06/30 1850 97.8 49 18 120/72 95 Room Air 06/30 1802 97.0 54 16 119/74 08 Room Air 06/30 1630 97.2 52 18 121/74 97 Room Air 06/30 1421 97.1 54 16 1110/72 94 Room Air 06/30 1141 Room Air 06/30 1140 96.7 42 16 109/78 95 Room Air Intake & Output 07/01 1600 07/01 0800 07/01 0000 Intake Total 120 740 Output Total 400 600 Balance -280 140 Intake, Oral 120 740 Output, Urine 400 600 Patient 97.069 kg Weight Physical Exam General Appearance: Alert, Oriented X3, Cooperative, No Acute Distress Skin: No Rashes, No Significant Lesion HEENT: Atraumatic, Mucous Membr. moist/pink Neck: Supple, No JVD Lymphatic: Cervical nl Cardiovascular: Regular Rate, Normal S1, Normal S2, No Murmurs Lungs: Normal Air Movement Abdomen: Normal Bowel Sounds, Soft, No Tenderness Extremities: No Clubbing, No Cyanosis, No Edema Vascular: Normal Pulses Current Medications: Current Medications Sig/Jeffry Start time Last Medication Dose Route Stop Time Status Admin Aspirin Buffered 162 MG DAILY 06/30 1000 AC 07/01 PO 1011 Dextrose/Sodium 1,000 ML Q13H 06/29 2345 DC 06/30 Chloride IV 06/30 1244 0033 Sotalol HCl 40 MG BID 06/30 1000 AC 07/01 PO 1010 Last 24 Hrs of Lab/Armando Results Last 24 Hrs of Labs/Mics: Laboratory Tests 07/01/16 0615: Anion Gap 13, Estimated GFR > 60, BUN/Creatinine Ratio 18.2, Magnesium 2.2 06/30/16 1132: Troponin I < 0.01 Assessment/Plan Assessment: This is 50-year-old man with past medical history of hypertension and paroxysmal A. fib not on any anticoagulation presented to ER with complaint of near syncope while he was playing basketball game. According to patient he was lightheaded, felt chest pressure, tingling sensation in his hands and feet. He was also pale and diaphoretic. He reports having similar episode but less severe 3 weeks ago while playing basketball game. He also had nuclear stress test as an outpatient that was normal. He also reports having a heart monitor for 1 day that did not show any abnormal rhythm. His recent echocardiogram showed a normal EF of 55% with mild LVH and mild left atrial enlargment with trace MR. Family history of heart attack and stroke in his grandfather. Hypertension in father. No family history of sudden cardiac . Vitals on admission-temperature was 96.0, pulse 127, respiratory rate 24, blood pressure 131/68 and oxygen saturation 98% on room air. Pertinent labs on admission-CBC normal, potassium 3.2 and creatinine 1.3. Troponins negative on admission. EKG showed supraventricular tachycardia. He was attached to monitor. He was going in and out of VT and also had a brief episode of A. fib. In ER he was given aspirin, Lopressor 5 mg IV 1, IV fluids. He was started on amiodarone drip and heparin drip after giving boluses. Potassium and magnesium were repleted. supraVentricular tachycardia/MAT Patient presented to ER with complaint of near syncope. Troponins were negative. EKG showed supraventricular tachycardia. This patient has a multifocal atrial tachycardia verses sinus rhythm with bouts of atrial fibrillation. He also has frequent episodes of NSVT. -Patient was started on amiodarone drip and heparin drip in the emergency room. -Admitted to telemetry floor for further treatment -Continuous telemetry monitoring -Monitor vitals every shift -Maintain oxygen saturations above 92% -Serial troponins and EKGs were negative -started on aspirin 162 mg daily -Amiodarone drip and heparin drip was discontinued once the heart rate remained stable and in sinus rhythm. -Patient was started on oral sotalol 40 mg twice a day -Will obtain echocardiogram Syncope Patient presented with chief complaint of near syncope while playing basketball. However no loss of consciousness. No syncopal event. Of note patient had similar episode 3 weeks ago. * Possibly from ventricular tachycardia versus bradycardia. * Patient has past history significant for bradycardia after using beta blockers. Asymptomatic bradycardia Patient presented with SVT. However he remained in sinus rhythm after getting amiodarone. His heart rate is running on low side. However asymptomatic. No arrhythmias noted overnight. This might be his baseline. * Continue taking sotalol 40 mg twice a day * Advised to follow-up with his sales representative sales manager Dr. Webber in one week * Patient may need outpatient stress test Hypokalemia 3.2 on admission Potassium was repleted Potassium 4.3 this morning Acute renal insufficiency Creatinine 1.3 on admission Gentle IV hydration was given Creatinine improved to 1.1 Hypertension Patient takes losartan and hydrochlorothiazide at home for blood pressure His blood pressure medications were on hold because of hypotension Paroxysmal atrial fibrillation Not on home medications Not on anticoagulants Full code Heart healthy diet DVT prophylaxis Lovenox Problem List: 1. SVT (supraventricular tachycardia) 2. Chest pain Pain Ratin Pain Location: none Pain Goal: Remain pain free Pain Plan: tylinol Tomorrow's Labs & Rationales: none Consulting Request: Consulting Specialty: Cardiology
[2016-07-01 08:00] VITALS: BP 126/90
--- NOTE | 2016-07-01 09:37 | PN- Cardiology ---
Subjective Subjective: * Patient feels well without lightheadedness, fatigue or palpitations. * sinus braycardia with well controlled blood pressure Objective Vital Signs and I&Os Vital Signs Date Time Temp Pulse Resp B/P Pulse O2 O2 Flow FiO2 Ox Delivery Rate 07/01 799 97.5 44 18 126/90 97 Room Air 07/01 0018 98.5 76 18 100/80 97 Room Air 06/30 1850 97.8 49 18 120/72 95 Room Air 06/30 1802 97.0 54 16 119/74 08 Room Air 06/30 1630 97.2 52 18 121/74 97 Room Air 06/30 1421 97.1 54 16 1110/72 94 Room Air 06/30 1141 Room Air 06/30 1140 96.7 42 16 109/78 95 Room Air 06/30 0955 96.2 50 18 115/70 Intake & Output 07/01 1600 07/01 0800 07/01 0000 06/30 1600 06/30 0800 06/30 0000 Intake Total 120 740 600 Output Total 400 600 600 600 300 Balance -280 140 0 -600 -300 Intake, Oral 120 740 600 Output, Urine 400 600 600 600 300 Patient 214 lb 205 lb Weight Physical Exam: General: WD/ WN male in NAD; alert and oriented x 3 Neck: no JVD, no carotid bruit Heart: RRR w/o murmur Lungs: clear bilaterally Extremities: no edema Assessment/Plan Assessment/Plan * This patient is much improved. He is free of dysrhythmia's on Sotolol 40mg BID. On this medication he does have asymptomatic bradycardia. I suspect that in the absence of his dysrhythmia's this patient is bradycardic at baseline. In any case, the Sotolol appears to be effective and the patient is asymptomatic. His BP is also well controlled. We will discharge this patient to home with follow up in the office in one week. Discharge on Sotolol 40mg PO BID and Aspirin 162mg daily. Stop his lisinoprilHCT. * This patient is suspected to have coronary artery disease although he did rule out for an acute coronary syndrome. We will pursue an outpatient stress test. Continue telemetry? No
[2016-07-01] MEDS ORDERED: ASPIRIN EC81 M1 PO ×2 (09:42→09:46)
[2016-07-01] MEDS ORDERED: BETAPACE80 MG PO ×2 (09:42→09:46)
--- NOTE | 2016-07-01 09:45 | Patient Discharge Instructions ---
Discharge Instructions General Discharge Information You were seen/treated for: Supraventricular tachycardia/MAT You had these procedures: None Watch for these problems: Dizziness or lightheadedness Syncope or near-syncope High blood pressure Tachycardia or bradycardia Special Instructions: Follow-up with primary care doctor in 1 week Follow-up with puttying and calking supervisor Dr. Williams Webber in one week Needs outpatient stress test Aspirin dose increased to 162 mg daily from 81 mg Started on sotolol 40 mg twice a day Stop lisinopril HCT. Diet Recommended Diet: Heart Healthy Activity Full Activity/No Limits: Yes Acute Coronary Syndrome Inclusion Criteria At DC or during hospital stay patient has or had the following: ACS DIAGNOSIS No Discharge Core Measures Meds if any: Prescribed or Continued at Discharge Meds if any: NOT Prescribed or Continued at Discharge Congestive Heart Failure Inclusion Criteria At DC or during hospital stay patient has or had the following: CHF DIAGNOSIS No Discharge Core Measures Meds if any: Prescribed or Continued at Discharge Meds if any: NOT Prescribed or Continued at Discharge Cerebrovascular accident Inclusion Criteria At DC or during hospital stay patient has or had the following: CVA/TIA Diagnosis No Discharge Core Measures Meds if any: Prescribed or Continued at Discharge Meds if any: NOT Prescribed or Continued at Discharge Venous thromboembolism Inclusion Criteria VTE Diagnosis No VTE Type NONE VTE Confirmed by (Test) NONE Discharge Core Measures - Per Current guidelines, there needs to be overlap - treatment for the first 5 days of Warfarin therapy. - If discharged on Warfarin prior to 5 days of - overlap therapy, the patient will need to be - assessed for post discharge needs including - *Post discharge parental anticoagulation - *Warfarin and/or parental anticoagulation education - *Follow up date to check INR post discharge At least 5 days overlap therapy as Inpatient No Meds if any: Prescribed or Continued at Discharge Note: Overlap Therapy is Warfarin and Anticoagulant Meds if any: NOT Prescribed or Continued at Discharge
--- NOTE | 2016-07-01 18:00 | Discharge Summary ---
Visit Information Visit Dates Admission Date: 06/29/16 Discharge Date: 07/01/16 Hospital Course Course Attending Physician: JUN TORRES PhD,WILLIAMS Alex Primary Care Physician: EMMA DODSON MD Other Care Providers: Dr. Jun gaston Consulting Request: Consulting Specialty: Cardiology Hospital Course: This is 50-year-old man with past medical history of hypertension and paroxysmal A. fib not on any anticoagulation presented to ER with complaint of near syncope while he was playing basketball game. According to patient he was lightheaded, felt chest pressure, tingling sensation in his hands and feet. He was also pale and diaphoretic. He reported having similar episode but less severe 3 weeks ago while playing basketball game. He also had nuclear stress test as an outpatient that was normal. He also reports having a heart monitor for 1 day that did not show any abnormal rhythm. His recent echocardiogram showed a normal EF of 55% with mild LVH and mild left atrial enlargment with trace MR. Family history of heart attack and stroke in his grandfather. Hypertension in father. No family history of sudden cardiac . Vitals on admission-temperature was 96.0, pulse 127, respiratory rate 24, blood pressure 131/68 and oxygen saturation 98% on room air. Pertinent labs on admission-CBC normal, potassium 3.2 and creatinine 1.3. Troponins negative on admission. cxr- normal. EKG showed supraventricular tachycardia. He was attached to monitor. He was going in and out of VT and also had a brief episode of A. fib. In ER he was given aspirin, Lopressor 5 mg IV 1, IV fluids. He was started on amiodarone drip and heparin drip after giving boluses. Potassium and magnesium were repleted. supraVentricular tachycardia/MAT Patient presented to ER with complaint of near syncope. Troponins were negative. EKG showed supraventricular tachycardia. This patient has a multifocal atrial tachycardia verses sinus rhythm with bouts of atrial fibrillation. He also has frequent episodes of NSVT. Patient was started on amiodarone drip and heparin drip in the emergency room. He was admitted to telemetry floor for further treatment. Serial troponins and EKGs were negative. started on aspirin 162 mg daily. We discontinued baby aspirin. Amiodarone drip and heparin drip was discontinued once the heart rate remained stable and in sinus rhythm. Patient was started on oral sotalol 40 mg twice a day. Syncope Patient presented with chief complaint of near syncope while playing basketball. However no loss of consciousness. No syncopal event. Of note patient had similar episode 3 weeks ago. Possibly from ventricular tachycardia versus bradycardia. Patient has past history significant for bradycardia after using beta blockers. Asymptomatic bradycardia Patient presented with SVT. However he remained in sinus rhythm after getting amiodarone. His heart rate is running on low side. However asymptomatic. This might be his baseline. He was advised to take sotalol 40 mg twice a day and to follow-up with his disposal plant operator Dr. Webber in one week. Patient may need outpatient stress test. Hypokalemia 3.2 on admission. Potassium was repleted. Potassium 4.3 at the time of discharge. Acute renal insufficiency Creatinine 1.3 on admission. Gentle IV hydration was given and Creatinine improved to 1.1. Hypertension Patient takes losartan and hydrochlorothiazide at home for blood pressure. His blood pressure medications were discontinued because of hypotension. Paroxysmal atrial fibrillation Not on home medications. Not on anticoagulants. Full code Heart healthy diet DVT prophylaxis Lovenox Complications: none Allergies: Coded Allergies: No Known Allergies (06/29/16) Significant Procedures: none Pertinent Lab Results: cxr- normal Disposition Summary Disposition Principal Diagnosis: Supraventricular tachycardia/mat Syncope Hypokalemia ASymptomatic bradycardia Additional Diagnosis: none Discharge Disposition: home or self care Discharge Instructions General Discharge Information Code Status: Full Code Patient's Diet: As tolerated Patient's Activity: As tolerated Follow-Up Instructions/Appts: Follow-up with primary care doctor in 1 week. Follow-up with disposal plant operator Dr. Williams Webber in one week. Needs outpatient stress test. Aspirin dose increased to 162 mg daily from 81 mg. Started on sotolol 40 mg twice a day. Stopped lisinopril HCT. Medications at Discharge Discharge Medications: Stop taking the following medications: Losartan/Hydrochlorothiazide (Losartan-Hctz 100-12.5 MG Tab) 1 EACH TABLET ORAL DAILY Qty = 90 Aspirin (Ecotrin*) 81 MG TABLET. ORAL DAILY Start taking the following new medications: Aspirin (Ecotrin*) 81 MG TABLET. 2 Tablet ORAL DAILY Qty = 30 No Refills Comments: Last Taken: 07/01/16 Time: 10 AM Sotalol (Betapace) 80 MG TABLET 0.5 Tablet ORAL TWICE DAILY Qty = 30 No Refills Comments: Last Taken: 07/01/16 Time: 10 AM Copies To: [facility] TORRES,EMMA Alex
== END 2016-07-01 11:15 | DRG 309 ==
LOC: ERH 19:14 → ERHI 22:08 → 1NO 06-30 18:23
PROVIDERS: Internal Medicine; Physician Assistant; ADMIT Internal Medicine Interventional Cardiology
DX: I47.1 Supraventricular tachycardia (principal); I24.8 Other forms of acute ischemic heart disease; I47.2 Ventricular tachycardia; E87.6 Hypokalemia; I10 Essential (primary) hypertension; I48.0 Paroxysmal atrial fibrillation; N28.9 Disorder of kidney and ureter, unspecified; I25.10 Atherosclerotic heart disease of native coronary artery without angina pectoris
CPT/HCPCS: 1NP; 86618; ERO; 80307; 82436; 93005; 93010; 96361; 96365; 96366; 96375; 96376; 99291; J0153; J0282; J1644; J3490; J7042